=== PATIENT | female | born 1970 | race Two or more races ===

== ENCOUNTER → 2023-01-30 | Outpatient (CLI) | payer OTHER | END | disposition home or self-care (01) | LOC: Rad HDHVI 13:10 | PROVIDERS: ATTEND Internal Medicine Cardiovascular Disease | DX: R07.89 Other chest pain (principal) | CPT/HCPCS: 93306 ==

== ENCOUNTER → 2023-02-24 | Outpatient (CLI) | payer OTHER ==
[~2023-02-24] VITALS: Ht 160 cm; Wt 68.0 kg
== END | disposition home or self-care (01) ==
LOC: Rad HDHVI 14:00
PROVIDERS: ATTEND Internal Medicine Cardiovascular Disease
DX: I10 Essential (primary) hypertension (principal); I20.9 Angina pectoris, unspecified; R06.02 Shortness of breath; E78.00 Pure hypercholesterolemia, unspecified; R42 Dizziness and giddiness; R07.9 Chest pain, unspecified; Z79.899 Other long term (current) drug therapy
CPT/HCPCS: 78452; 93017; 96374; A9500

== ENCOUNTER → 2023-08-17 | Outpatient (CLI) | payer OTHER ==
[2023-08-17 11:43] LABS: Basophils # (auto) 0 10 ^3/uL (0-0.2); Basophils % (auto) 0.7 % (0.0-2.0); Eosinophils # (auto) 0 10 ^3/uL (0-0.8); Eosinophils % (auto) 0.8 % (0.0-7.0); Hematocrit 41.2 % (36.0-46.0); Hemoglobin 14.1 g/dL (12.2-16.2); Lymphocytes # (auto) 1.7 10 ^3/uL (0.4-5.4); Lymphocytes % (auto) 43.9 % (10.0-50.0); Mean Corpuscular Hemoglobin 29.9 pg (28.0-32.0); Mean Corpuscular Hgb Conc. 34.2 g/dL (32.0-36.0); Mean Corpuscular Volume 87.6 fL (80.0-100.0); Monocytes # (auto) 0.3 10 ^3/uL (0-1.3); Monocytes % (auto) 7.3 % (0.0-12.0); Neutrophils # (auto) 1.8 10 ^3/uL (1.6-8.6); Neutrophils % (auto) 47.3 % (37.0-80.0); Nucleated Red Blood Cells % 0.2 %; Red Blood Cells 4.71 10^6/uL (4.0-5.20); Red Cell Distribution Width 12.7 % (11.8-14.3); White Blood Cell 3.9 10^3/uL (4.4-10.8)
[2023-08-17 12:08] LABS: Follicle Stimulating Hormone 12.09 IU/L (SEE BELOW)
== END | disposition home or self-care (01) ==
LOC: LAB 10:56
PROVIDERS: ATTEND Obstetrics & Gynecology
DX: Z13.220 Encounter for screening for lipoid disorders (principal); N95.1 Menopausal and female climacteric states; E07.89 Other specified disorders of thyroid; E34.9 Endocrine disorder, unspecified; E53.9 Vitamin B deficiency, unspecified; E55.9 Vitamin D deficiency, unspecified
CPT/HCPCS: 36415; 82670; 83001; 84144; 84403; 85025

== ENCOUNTER → 2024-01-04 | Outpatient (CLI) | payer OTHER ==
[~2024-01-04] MED LIST: IOHEXOL 350 MG/ML 100ML IJ ONE
[2024-01-04 10:20] VITALS: BP 133/82; PULSE 53; RESP 18; O2SAT 98
[2024-01-04 10:40] VITALS: BP 135/83; PULSE 59; RESP 18; O2SAT 98
== END | disposition home or self-care (01) ==
LOC: Rad HDHVI 10:07
PROVIDERS: ATTEND Internal Medicine Cardiovascular Disease
DX: R07.89 Other chest pain (principal); R00.2 Palpitations
CPT/HCPCS: 71275; G0463; Q9967

== ENCOUNTER → 2024-06-14 | Outpatient (CLI) | payer OTHER | END | disposition home or self-care (01) | LOC: Rad HDHVI 16:08 | PROVIDERS: ATTEND Internal Medicine Cardiovascular Disease | DX: R00.2 Palpitations (principal); R06.02 Shortness of breath | CPT/HCPCS: 93306 ==

== ENCOUNTER → 2024-06-15 | Outpatient (CLI) | payer OTHER ==
[~2024-06-15] VITALS: Ht 160 cm; Wt 68.0 kg
== END | disposition home or self-care (01) ==
LOC: Rad HDHVI 14:00
PROVIDERS: ATTEND Internal Medicine Cardiovascular Disease
DX: I10 Essential (primary) hypertension (principal); I20.9 Angina pectoris, unspecified; R42 Dizziness and giddiness; R00.1 Bradycardia, unspecified; R00.2 Palpitations; R06.00 Dyspnea, unspecified; E78.00 Pure hypercholesterolemia, unspecified; Z82.49 Family history of ischemic heart disease and other diseases of the circulatory system
CPT/HCPCS: 78452; 93017; 96374; A9500

== ENCOUNTER → 2024-11-15 | Outpatient (CLI) | payer OTHER ==
[2024-11-15 09:34] LABS: Urine Bacteria None Seen /hpf (None Seen)
[2024-11-15 10:00] LABS: Basophils # (auto) 0 10 ^3/uL (0-0.2); Basophils % (auto) 0.8 % (0.0-2.0); Eosinophils # (auto) 0 10 ^3/uL (0-0.8); Hematocrit 39.4 % (36.0-46.0); Hemoglobin 13.5 g/dL (12.2-16.2); Lymphocytes # (auto) 1.7 10 ^3/uL (0.4-5.4); Lymphocytes % (auto) 38.9 % (10.0-50.0); Mean Corpuscular Hgb Conc. 34.3 g/dL (32.0-36.0); Mean Corpuscular Volume 87.4 fL (80.0-100.0); Monocytes # (auto) 0.3 10 ^3/uL (0-1.3); Neutrophils # (auto) 2.3 10 ^3/uL (1.6-8.6); Neutrophils % (auto) 52.3 % (37.0-80.0); Nucleated Red Blood Cells % 0.1 %; Platelet Count (auto) 278 10^3/uL (140-450); Red Blood Cells 4.51 10^6/uL (4.0-5.20); Red Cell Distribution Width 13.3 % (11.8-14.3); White Blood Cell 4.4 10^3/uL (4.4-10.8)
[2024-11-15 10:03] LABS: Urine Blood Negative /uL (Negative); Urine Clarity Clear (Clear); Urine Color Colorless (Yellow); Urine Protein, UAD Negative (Negative); Urine Specific Gravity 1.004 (1.001-1.035); Urine Squamous Epithelial Cell FEW /hpf (<5); Urine Urobilinogen Normal (Negative); Urine WBC 2 /HPF (0-5); Urine pH 6.5 (5.0-9.0)
[2024-11-15 10:23] LABS: Anion Gap 7 (5-15); Aspartate Aminotransferase 23 U/L (13-40); BUN/Creatinine Ratio 12.7 (10.0-20.0); Bilirubin, Total 0.8 mg/dL (0.2-1.0); Blood Urea Nitrogen 10 mg/dL (9-23); Carbon Dioxide 28 mmol/L (20-31); Cholesterol 186 mg/dL (< 200); Glucose 93 mg/dL (74-106); Magnesium 2.2 mg/dL (1.6-2.6); Sodium 143 mmol/L (136-145); Total Protein 7.6 g/dL (5.7-8.2); Triglycerides 122 mg/dL (< 150)
[2024-11-15 10:38] LABS: Alanine Aminotransferase 41 U/L (7-40); Albumin 4.9 g/dL (3.2-4.8); Chloride 108 mmol/L (98-107); HDL Cholesterol 63 mg/dL (40-59); LDL Cholesterol 110 mg/dL (< 100)
[2024-11-15 10:43] LABS: Ferritin 106.5 ng/mL (10-291); Free T4 (Free Thyroxine) 1.18 ng/dL (0.89-1.76)
[2024-11-15 10:44] LABS: Follicle Stimulating Hormone 46.03 IU/L (SEE BELOW); Leuteinizing Hormone 22.4 IU/L
[2024-11-15 10:56] LABS: % Iron Saturation 31.9 % (15-50)
[2024-11-15 11:04] LABS: Folate (Folic Acid) 28.23 ng/mL (>5.38)
[2024-11-15 11:11] LABS: Alkaline Phosphatase 79 U/L (46-116)
== END | disposition home or self-care (01) ==
LOC: LAB 09:18
PROVIDERS: ATTEND Family Medicine
DX: E78.5 Hyperlipidemia, unspecified (principal); R06.02 Shortness of breath; Z78.0 Asymptomatic menopausal state
CPT/HCPCS: 36415; 80053; 80061; 81001; 82306; 82607; 82670; 82728; 82746; 83001; 83002; 83036; 83540; 83550; 83735; 84403; 84439; 84443; 85025

== ENCOUNTER → 2025-03-28 | Day surgery (SDC) | payer OTHER ==
[2025-03-24 10:32] LABS: Hematocrit 41.0 % (36.0-46.0); Hemoglobin 13.9 g/dL (12.2-16.2); Mean Corpuscular Hemoglobin 29.5 pg (28.0-32.0); Mean Corpuscular Volume 86.9 fL (80.0-100.0); Nucleated Red Blood Cells % 0.1 %
[2025-03-24 10:41] LABS: INR 0.95 (0.9-1.15); Partial Thromboplastin Time 27.0 SEC (24.5-34.5); Prothrombin Time 10.1 sec (9.3-11.8)
[2025-03-24 10:42] LABS: Alanine Aminotransferase 30 U/L (7-40); Albumin 4.6 g/dL (3.2-4.8); Alkaline Phosphatase 87 U/L (46-116); Anion Gap 5 (5-15); BUN/Creatinine Ratio 12.5 (10.0-20.0); Bilirubin, Total 0.6 mg/dL (0.2-1.0); Blood Urea Nitrogen 10 mg/dL (9-23); Calcium 9.6 mg/dL (8.7-10.4); Carbon Dioxide 30 mmol/L (20-31); Chloride 107 mmol/L (98-107); Glucose 100 mg/dL (74-106); Potassium 4.1 mmol/L (3.5-5.1); Sodium 142 mmol/L (136-145); Total Protein 7.3 g/dL (5.7-8.2)
[~2025-03-28] VITALS: Ht 160 cm; Wt 68.0 kg
[~2025-03-28] MED LIST changes: +GARL200T PO; -IOHEXOL 350 MG/ML 100ML IJ ONE; +SODIUM CHLORIDE LOCK 10 ML ONE
[2025-03-28 11:46] VITALS: TEMP 97.5
[2025-03-28 12:16] VITALS: PULSE 66; RESP 19; O2SAT 100
[2025-03-28] MEDS: LIDOCAINE VISCOUS 2% 15ML UD ONE (12:19)
[2025-03-28] MEDS: MIDAZOLAM HCL 5 MG/ML-1ML VIAL ONE (12:20)
[2025-03-28] MEDS: fentaNYL CITRATE 100 MCG/2 ML VL ONE (12:20)
[2025-03-28] MEDS: diphenhdrAMINE HCL 50 MG/1 ML VL ONE (12:20)
[2025-03-28 12:33] VITALS: O2SAT 98
--- NOTE | 2025-03-28 12:40 | DVHOP2 ---
Operative Report DATE OF OPERATION: 03/28/25 PROCEDURE: Upper Endoscopy with biopsy PREOPERATIVE INDICATION: The patient is a 54 -year-old female undergoing endoscopy for epigastric and right upper quadrant pain and history of H.pylori positive POSTOPERATIVE DIAGNOSES: 1. Mild antral gastritis and minimal duodenitis of the duodenal bulb 2. 5 mm extension of columnar epithelium into the distal esophagus but no significant hiatal hernia or esophagitis 3. Otherwise normal examination up to the 2nd and 3rd part of the duodenum PROCEDURE PERFORMED BY: Nicki Carney GI NURSE: Will SCOPE: Olympus videoendoscope. ASA CLASS: 2. PREOPERATIVE MEDICATIONS: Versed 3 mg, Fentanyl 75 mcg, Benadryl 50 mg I administered moderate sedation throughout this _8_ minutes procedure. An independent trained observer pushed medications at my direction, and monitored the patient's level of consciousness and physiological status throughout. PROCEDURE IN DETAIL: After obtaining an informed consent, the patient was placed on left lateral decubitus position. The patient was then sedated with the above medications. A bite block was placed between her teeth. The endoscope was then passed through the oropharynx, into the esophagus, and through the stomach and pylorus up to the second and third part of the duodenum. The endoscope was then withdrawn. The 2nd and 3rd part of the duodenum were normal in the duodenal bulb showed minimal duodenitis. Duodenal biopsies were obtained The pre-pyloric area antrum and body showed minimal gastritis. Gastric biopsies were obtained On retroflexion the fundus cardia and angularis were normal. The endoscope was then withdrawn into the distal esophagus Patient had slightly irregular squamocolumnar junction with 5 mm extension of columnar epithelium into the distal esophagus from which biopsies were obtained There was no significant hiatal hernia and no significant esophagitis. The remaining distal and proximal esophagus and oropharynx were unremarkable The patient tolerated the procedure well without difficulty. COMPLICATIONS : None SPECIMENS: Duodenal biopsies Gastric biopsies GE junction biopsies DISPOSITION: Stable D/C to home PLAN: 1. Await for biopsy result 2. Will place pt on Protonix 20 mg p.o. daily 3. Resume GI soft diet advance as tolerated 4. Outpatient follow up with me in 4-6 weeks to review results and discuss further management NICKI CARNEY MD Mar 28, 2025 12:40
[2025-03-28 13:10] VITALS: BP 135/76; PULSE 50; RESP 14; O2SAT 100
== END | disposition home or self-care (01) ==
LOC: GI 11:24
PROVIDERS: ATTEND Internal Medicine Gastroenterology
DX: R10.13 Epigastric pain (principal); K29.50 Unspecified chronic gastritis without bleeding; K21.00 Gastro-esophageal reflux disease with esophagitis, without bleeding; K29.80 Duodenitis without bleeding; G47.30 Sleep apnea, unspecified
CPT/HCPCS: 36415; 43239; 80053; 81025; 85025; 85610; 85730; 88305; 88342; J1200; J2250; J3010; J7030

== ENCOUNTER → 2025-06-02 | Outpatient (CLI) | payer OTHER ==
[~2025-06-02] MED LIST changes: -SODIUM CHLORIDE LOCK 10 ML ONE
[2025-06-02 11:52] LABS: Hematocrit 40.6 % (36.0-46.0); Hemoglobin 13.8 g/dL (12.2-16.2); Mean Corpuscular Hemoglobin 29.1 pg (28.0-32.0); Mean Corpuscular Volume 85.6 fL (80.0-100.0); Nucleated Red Blood Cells % 0.3 %
[2025-06-02 11:59] LABS: Urine Protein, UAD Negative (Negative)
[2025-06-02 12:32] LABS: Alanine Aminotransferase 27 U/L (7-40); Albumin 4.6 g/dL (3.2-4.8); Alkaline Phosphatase 79 U/L (46-116); Anion Gap 9 (5-15); BUN/Creatinine Ratio 14.3 (10.0-20.0); Bilirubin, Total 1.0 mg/dL (0.2-1.0); Blood Urea Nitrogen 13 mg/dL (9-23); Calcium 9.7 mg/dL (8.7-10.4); Carbon Dioxide 26 mmol/L (20-31); Chloride 108 mmol/L (98-107); Glucose 96 mg/dL (74-106); Potassium 3.9 mmol/L (3.5-5.1); Sodium 143 mmol/L (136-145); Total Protein 7.5 g/dL (5.7-8.2)
[2025-06-02 12:52] LABS: Triglycerides 96 mg/dL (< 150)
[2025-06-02 12:54] LABS: Bilirubin, Direct 0.2 mg/dL (<0.3); Cholesterol 223 mg/dL (< 200); HDL Cholesterol 63 mg/dL (40-59)
== END | disposition home or self-care (01) ==
LOC: LAB 11:12
PROVIDERS: ATTEND Internal Medicine Cardiovascular Disease
DX: I10 Essential (primary) hypertension (principal); E11.9 Type 2 diabetes mellitus without complications; E55.9 Vitamin D deficiency, unspecified; D64.9 Anemia, unspecified; T78.1XXA Other adverse food reactions, not elsewhere classified, initial encounter; X58.XXXA Exposure to other specified factors, initial encounter
CPT/HCPCS: 36415; 80048; 80061; 80076; 81003; 83036; 84443; 85025; 86003

== ENCOUNTER 2025-07-05 03:48 | Inpatient (IN) | payer OTHER ==
[~2025-07-05] VITALS: Ht 160 cm; Wt 68.4 kg
[2025-07-05 04:34] LABS: Chloride 106 mmol/L (98-107); Potassium 4.0 mmol/L (3.5-5.1); Sodium 143 mmol/L (136-145)
[2025-07-05 04:35] LABS: Anion Gap 9 (5-15); Calcium 9.8 mg/dL (8.7-10.4); Carbon Dioxide 28 mmol/L (20-31)
[2025-07-05 04:36] LABS: Hematocrit 38.3 % (36.0-46.0); Hemoglobin 13.0 g/dL (12.2-16.2); Mean Corpuscular Hemoglobin 29.2 pg (28.0-32.0); Mean Corpuscular Volume 86.4 fL (80.0-100.0); Nucleated Red Blood Cells % 0.0 %
--- NOTE | 2025-07-05 04:36 | ECG ---
[facility] Test Date: 2025-07-05 Test Time: 04:33:55 Pat Name: JR JACOBS Department: ED Room: 0287T Gender: F Processing Supervisor: REKHA : 1970 Requested By: LUCIE GALDAMEZ Order Number: [id number] Reading MD: Fidencio Velez Measurements Intervals [place] Rate: 50 P: 71 MT: 181 QRS: 66 QRSD: 83 T: 57 QT: 443 QTc: 404 Interpretive Statements Sinus rhythm Anteroseptal infarct, age indeterminate Electronically Signed On 07-10-2025 14:15:51 PDT by Fidencio Velez Please click the below link to view image of tracing.
[2025-07-05 04:40] LABS: BUN/Creatinine Ratio 11.0 (10.0-20.0); Blood Urea Nitrogen 9 mg/dL (9-23)
[2025-07-05 04:44] LABS: Glucose 111 mg/dL (74-106)
--- NOTE | 2025-07-05 05:42 | DVH ---
CHEST RADIOGRAPH Indication: cp Technique: Single frontal view of the chest was obtained Comparison: CT CT ANGIO CHEST CONTRAST on DOS: 01/04/24 FINDINGS: Lines and Tubes: None Lungs: No focal consolidation. Pleura: No effusion. No pneumothorax. Cardiomediastinal contours: Unremarkable Bones: No acute osseous abnormality. IMPRESSION: 1. No acute cardiopulmonary disease.
--- NOTE | 2025-07-05 06:40 | ECG ---
[facility] Test Date: 2025-07-05 Test Time: 03:54:19 Pat Name: JR JACOBS Department: ED Room: 0287T Gender: F Therapy Administrative Assistant: oswald : 1970 Requested By: LUCIE GALDAMEZ Order Number: [id number] Reading MD: Fidencio Velez Measurements Intervals [place] Rate: 52 P: 70 SD: 181 QRS: 64 QRSD: 78 T: 58 QT: 440 QTc: 410 Interpretive Statements Sinus rhythm Probable anteroseptal infarct, old Electronically Signed On 07-10-2025 14:15:01 PDT by Fidencio Velez Please click the below link to view image of tracing.
--- NOTE | 2025-07-05 06:44 | ED.PDOC ---
HPI Comments This is a 55 year old female presenting to the ED with chief complaint of chest pain. Patient reports that she has been experiencing substernal chest pressure with associated cough, dizziness, nausea, and occasional heart burn since last night around 5pm. 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 Patient states that she has history of a perforated left ear drum at this time. Patient denies any vomiting, SOB, abdominal pain, headache, syncope, or fever. Chief Complaint: Chest Pain Time Seen by MD: 06:42 Reviewed Notes: Nurses Notes, Medications, Allergies Allergies: Coded Allergies: NO KNOWN ALLERGIES (Unverified , 03/24/25) Home Meds Active Scripts Alum & Mag Hydrox-Simethicone (Maalox Plus) 30 Ml Ss, 30 ML PO Q6HP PRN for 30 Days, #1200 ML Prov:VANIA HILLIARD MD 07/07/25 Reported Medications Pantoprazole Sodium Sesquihydr (Protonix) 40 Mg Tab, 40 MG PO DAILY, #30 TAB 07/05/25 Allium Sativan Extract (GARLIC) 200 Mg Tab, PO, TAB 03/24/25 Information Source: Patient, Spouse Mode of Arrival: Ambulatory Severity: Moderate Timing: Hours Duration: Since onset Prehospital treatment: None Location: Substernal Radiation: No Radiation Quality: Pressure, Burning Onset: At Rest PE Risk Factors: None History of: None Past Medical History PAST MEDICAL HISTORY: Denies Surgical History: Denies all surgeries SLEEP SCIENTIST History: No Pertinent SLEEP SCIENTIST History Family History Family History: Reviewed,noncontributory to illness Social History Smoker: Non-Smoker Alcohol: Denies ETOH Use Drugs: Denies Drug Use Lives In: Home Constitutional: denies: chills, diaphoresis, fatigue, fever, malaise, sweats, weakness, others EENTM: denies: blurred vision, double vision, ear bleeding, ear discharge, ear drainage, ear pain, ear ringing, eye pain, eye redness, hearing loss, mouth pain, mouth swelling, nasal discharge, nose bleeding, nose congestion, nose pain, photophobia, tearing, throat pain, throat swelling, voice changes, others Respiratory: reports: cough; denies: hemoptysis, orthopnea, SOB at rest, shortness of breath, SOB with excertion, stridor, wheezing, others Cardiovascular: reports: chest pain; denies: dizzy spells, diaphoresis, Dyspnea on exertion, edema, irregular heart beat, left arm pain, lightheadedness, palpitations, PND, syncope, others Gastrointestinal: reports: nausea; denies: abdomen distended, abdominal pain, blood streaked bowels, constipated, diarrhea, dysphagia, difficulty swallowing, hematemesis, melena, poor appetite, poor fluid intake, rectal bleeding, rectal pain, vomiting, others Genitourinary: denies: abnormal vagina bleeding, burning, dyspareunia, dysuria, flank pain, frequency, hematuria, incontinence, pain, , vagina discharge, urgency, others Neurological: reports: dizziness; denies: fainting, headache, left sided numbness, left sided weakness, numbness, paresthesia, pre-existing deficit, right sided numbness, right sided weakness, seizure, speech problems, tingling, tremors, weakness, others Musculoskeletal: denies: back pain, gout, joint pain, joint swelling, muscle pain, muscle stiffness, neck pain, others Integumetry: denies: bruises, change in color, change in hair/nails, dryness, laceration, lesions, lumps, rash, wounds, others Allergic/Immunocompromised: denies: Difficulty Healing, Frequent Infections, Hives, Itching, others Hematologic/Lymphatic: denies: anemia, blood clots, easy bleeding, easy bruising, swollen glands, others Endocrine: denies: excessive hunger, excessive sweating, excessive thirst, excessive urination, flushing, intolerance to cold, intolerance to heat, unexplained weight gain, unexplained weight loss, others Psychiatric: denies: anxiety, bipolar disorder, depression, hopeless, panic disorder, schizophrenia, sleepless, suicidal, others All Other Systems: Reviewed and Negative Physical Exam General Appearance: No Apparent Distress, Normal HEENT: Normal ENT Inspection, Pharynx Normal, TMs Normal Neck: Full Range of Motion, Non-Tender, Normal, Normal Inspection Respiratory: Chest Non-Tender, Lungs Clear, No Accessory Muscle Use, No Respiratory Distress, Normal Breath Sounds Cardiovascular: No Edema, No JVD, No Murmur, No Gallop, Normal Peripheral Pulses, Regular Rate/Rhythm Breast Exam: Deferred Gastrointestinal: No Organomegaly, Non Tender, No Pulsatile Mass, Normal Bowel Sounds, Soft Genitalia: Deferred Pelvic: Deferred Rectal: Deferred Extremities: No calf tenderness, Normal capillary refill, Normal inspection, Normal range of motion, Non-tender, No pedal edema Musculoskeletal : Apperance: Normal Neurologic: Alert, double back operator II-XII nml as Tested, No Motor Deficits, Normal Affect, Normal Mood, No Sensory Deficits Cerebellar Function: Normal Reflexes: Normal Skin: Dry, Normal Color, Warm Lymphatic: No Adenopathy Was a procedure done? Was a procedure done?: No CP Differential Dx Differential Diagnosis: MAT, [place] Differential Diagnosis: HTN Essential, HTN Accelerated Differential Diagnosis: Gastritis, Myocardial Infarction, Pericarditis X-Ray, Labs, Meds, VS Vital Signs Date Time Temp Pulse Resp B/P (MAP) Pulse Ox O2 Delivery O2 Flow Rate FiO2 07/05/25 09:55 54 20 139/61 07/05/25 09:50 54 20 98 Room Air* 0 21 07/05/25 09:31 54 20 98 Room Air 07/05/25 09:31 97.7 54 20 139/61 (87) 98 97.7 07/05/25 06:43 54 07/05/25 04:33 50 07/05/25 03:54 52 07/05/25 03:51 97.8 51 18 164/102 99 97.8 Lab Test 07/05/25 06:51 07/05/25 05:03 07/05/25 03:56 Range/Units Troponin I High Sensitivity 24 23 20 </=34 ng/L White Blood Count 5.0 4.4-10.8 10^3/uL Red Blood Count 4.43 4.0-5.20 10^6/uL Hemoglobin 13.0 12.2-16.2 g/dL Hematocrit 38.3 36.0-46.0 % Mean Corpuscular Volume 86.4 80.0-100.0 fL Mean Corpuscular Hemoglobin 29.2 28.0-32.0 pg Mean Corpuscular Hemoglobin Concent 33.8 32.0-36.0 g/dL Red Cell Distribution Width 12.9 11.8-14.3 % Platelet Count 296 140-450 10^3/uL Mean Platelet Volume 8.4 6.9-10.8 fL Neutrophils (%) (Auto) 44.5 37.0-80.0 % Lymphocytes (%) (Auto) 46.3 10.0-50.0 % Monocytes (%) (Auto) 7.4 0.0-12.0 % Eosinophils (%) (Auto) 1.2 0.0-7.0 % Basophils (%) (Auto) 0.6 0.0-2.0 % Neutrophils # (Auto) 2.2 1.6-8.6 10 ^3/uL Lymphocytes # (Auto) 2.3 0.4-5.4 10 ^3/uL Monocytes # (Auto) 0.4 0-1.3 10 ^3/uL Eosinophils # (Auto) 0.1 0-0.8 10 ^3/uL Basophils # (Auto) 0 0-0.2 10 ^3/uL Nucleated Red Blood Cells 0.0 % Sodium Level 143 136-145 mmol/L Potassium Level 4.0 3.5-5.1 mmol/L Chloride Level 106 98-107 mmol/L Carbon Dioxide Level 28 20-31 mmol/L Anion Gap 9 5-15 Blood Urea Nitrogen 9 9-23 mg/dL Creatinine 0.82 0.550-1.02 mg/dL Glomerular Filtration Rate Calc 85 >90 mL/min BUN/Creatinine Ratio 11.0 10.0-20.0 Serum Glucose 111 H 74-106 mg/dL Hemoglobin A1c 5.4 <5.7 % A1C Calcium Level 9.8 8.7-10.4 mg/dL B-Type Natriuretic Peptide 7.47 0-100 pg/mL Triglycerides Level 93 < 150 mg/dL Cholesterol Level 240 H < 200 mg/dL LDL Cholesterol 165 H < 100 mg/dL HDL Cholesterol 66 H 40-59 mg/dL Thyroid Stimulating Hormone (TSH) 4.51 0.55-4.78 uIU/mL [address] [address] Ph: [phone] DIAGNOSTIC IMAGING Diagnostic Imaging Report : [id number] Signed PATIENT: JR JACOBS ACCT: [id number] UNIT: [id number] : 1970 LOC: ER ROOM / BED: / AGE / SEX: 55 / F ADM STATUS: REG ER SERVICE 0410 ORDERING PHYSICIAN: LUCIE GALDAMEZ MD PROCEDURE(s): CXR1 - CHEST XRAY 1 VIEW REASON: cp ORDER NUMBER(s): [id number], ACCESSION NUMBER(s): [id number] CHEST RADIOGRAPH Indication: cp Technique: Single frontal view of the chest was obtained Comparison: CT CT ANGIO CHEST CONTRAST on DOS: 01/04/24 FINDINGS: Lines and Tubes: None Lungs: No focal consolidation. Pleura: No effusion. No pneumothorax. Cardiomediastinal contours: Unremarkable Bones: No acute osseous abnormality. IMPRESSION: 1. No acute cardiopulmonary disease. ATED BY: THU LEON MD DICTATED DATE/TIME: 07/05/25539 SIGNED BY: THU LEON MD SIGNED DATE/TIME: 07/05/25539 CC: Images Reviewed?: Images reviewed and evaluated by me Time of 1ST Reevaluation: 17:42 Reevaluation 1ST: Unchanged Patient Education/Counseling: Diagnosis, Treatment Family Education/Counseling: Diagnosis, Treatment SEPSIS Sepsis Screen Date sepsis recognized/suspect: Jul 05, 2025 Time Sepsis recognized/suspect: 035 Recent Procedure: No On Antibiotic Therapy: No Respiratory Rate >20: No Heart Rate >90: No Temp<36 C (96.8 F) or >38.3 C: No SBP <90 or MAP <65 mmHG: No New Acute Mental Status Change: No Is the patient on CPAP, BIPAP,: No Physician Orders Electrocardigram (07/05/25 03:51) Electrocardigram (07/05/25 04:51) Electrocardigram (07/05/25 06:51) Chest Xray 1 View (07/05/25 04:10) Geospatial Analyst (07/05/25 ) Vital Signs Date Time Temp Pulse Resp B/P (MAP) Pulse Ox O2 Delivery O2 Flow Rate FiO2 07/05/25 09:55 54 20 139/61 07/05/25 09:50 54 20 98 Room Air* 0 21 07/05/25 09:31 54 20 98 Room Air 07/05/25 09:31 97.7 54 20 139/61 (87) 98 97.7 07/05/25 06:43 54 07/05/25 04:33 50 07/05/25 03:54 52 07/05/25 03:51 97.8 51 18 164/102 99 97.8 Laboratory Tests Test 07/05/25 03:56 White Blood Count 5.0 10^3/uL (4.4-10.8) Departure 1 Departure Time of Disposition: 08:00 (Patient presented with chest pain that was concerning for possible STEMI, ACS, PE, Pneumonia, Muscle Strain, COPD, Dissection. Data: 1. I ordered and reviewed the result of at least 3 labs including a CBC, BMP, and Troponin. 2. I independently interpreted the following tests: EKG which shows sinus arrhythmia and Chest X-ray which shows benign chest.Risk:This patient has a high risk of morbidity due to further diagnostic testing or treatment and may suffer from an acute cardiac or respiratory disorder. Workup reveals and patient should be admitted for further workup and possible expert consultation. ) Impression: Primary Impression: Acute chest pain Disposition: ADMITTED INPATIENT Admit to: Tele Condition: Guarded e-Prescriptions Alum & Mag Hydrox-Simethicone (Maalox Plus) 30 Ml Ss 30 ML PO Q6HP PRN for 30 Days, #1200 ML Prov: VANIA HILLIARD MD 07/07/25 Critical Care Note Critical Care Time?: Yes Critical care comment: Acute chest pain Authorized and Performed by: Josias Smith MD Total critical care time: Approximately 38 minutes Due to a high probability of clinically significant, life threatening deterioration, the patient required my highest level of preparedness to intervene emergently and I personally spent this critical care time directly and personally managing the patient. This critical care time included obtaining a history; examining the patient; pulse oximetry; ordering and review of studies; arranging urgent treatment with development of a management plan; evaluation of patient's response to treatment; frequent reassessment; and, discussions with other providers. This critical care time was performed to assess and manage the high probability of imminent, life-threatening deterioration that could result in multi-organ failure. It was exclusive of separately billable procedures and treating other patients and teaching time. Please see my other sections and the rest of the note for further information on patient assessment and treatment. Stability Stability form required: No Heart Score Heart Score: Heart Score Response (Comments) Value History Highly Suspicious 2 EKG Repolarization Disturb 1 Age 45-64 1 Risk Factors 1 or 2 risk factors 1 Troponin >3 x's Normal limit 2 Total 7 I personally scribed for JOSIAS SMITH MD ([email or web address]) on 07/05/25 at 06:44. El ectronically submitted by Mark Salcedo ([email or web address]). I personally scribed for JOSIAS SMITH MD ([email or web address]) on 07/05/25 at 07:14. E lectronically submitted by Mark Salcedo ([email or web address]). JOSIAS SMITH MD Jul 05, 2025 06:44
--- NOTE | 2025-07-05 06:45 | ECG ---
[facility] Test Date: 2025-07-05 Test Time: 06:43:17 Pat Name: JR JACOBS Department: ED Room: 0287T Gender: F Disability Representative: REKHA : 1970 Requested By: LUCIE GALDAMEZ Order Number: [id number] Reading MD: Fidencio Velez Measurements Intervals [place] Rate: 54 P: 74 [place]: 189 QRS: 66 QRSD: 78 T: 57 QT: 431 QTc: 409 Interpretive Statements Sinus rhythm Probable anteroseptal infarct, old Electronically Signed On 07-10-2025 14:17:29 PDT by Fidencio Velez Please click the below link to view image of tracing.
[2025-07-05] MEDS: MAALOX PLUS or MAALOX 30 ML PO ONE (07:07)
[2025-07-05] MEDS: ONDANSETRON ODT 4 MG TAB PO ONE (07:07)
[2025-07-05] MEDS: FAMOTIDINE 20 MG TAB PO ONE (07:08)
[2025-07-05 09:50] VITALS: PULSE 54; RESP 20; O2SAT 98
[2025-07-05] MEDS: ONDANSETRON HCL 4 MG/2 ML VIAL IV ONE (09:53)
[2025-07-05] MEDS: HYDROmorphone HCL 2 MG/ML VL/or syr IV ONE (09:55)
[2025-07-05] MEDS ORDERED: NITROGLYCERIN 0.4 MG SL TAB SL PRN (10:30)
[2025-07-05] MEDS ORDERED: ONDANSETRON HCL 4 MG/2 ML VIAL IV PRN (10:30)
[2025-07-05] MEDS ORDERED: DOCUSATE SOD 100 MG CAP PO PRN (10:30)
[2025-07-05] MEDS ORDERED: ACETAMINOPHEN 325 MG TAB PO PRN (10:30)
[2025-07-05] MEDS ORDERED: MORPHINE SULFATE INJ 2 MG/ml SYRG IV PRN (10:30)
--- NOTE | 2025-07-05 10:44 | DVHHP2 ---
History of Present Illness Reason for Visit: Chest pain History of Present Illness Danyell Garcia is a 55-year-old female with past medical history of sleep apnea, and GERD, who came to the hospital for chest pain. Patient states she has been experiencing intermittent chest pain for the past couple of months. She states it usually goes away with a little time. This time her chest pain started last night about 2330. She describes the pain as a pressure, with associated dizziness, and sweating. When the pain did not subside she came to the hospital. She is following with Dr. Bowen as an outpatient. She was told she was going to have an ECHO and stress test, but is not sure when. Pulmonary: Other (sleep apnea) GI: GERD Past Surgical History: None Smoke: No ALCOHOL: none Drugs: None Lives: with Family Domestic Violence: Neg Review of Systems Constitutional: Yes: Sweats; No: Fever, Chills, Weakness, Malaise, Other Eyes: No: Pain, Vision change, Conjunctivae inflammation, Eyelid inflammation, Other, Redness ENT: No: Ear pain, Ear discharge, Nose pain, Nose discharge, Nose congestion, Mouth pain, Mouth swelling, Throat pain, Throat swelling, Other Respiratory: Shortness of breath; No: Cough, Dry, SOB with excertion, Wheezing, Hemoptysis, Pleuritic Pain, Sputum, Wheezing, Other Cardiovascular: Chest Pain; No: Palpitations, Orthopnea, Paroxysmal Noc. Dyspnea, Edema, Lt Headedness, Other Gastrointestinal: No: Nausea, Vomiting, Abdominal Pain, Diarrhea, Constipation, Melena, Hematochezia, Other Genitourinary: No Dysuria, No Frequency, No Incontinence, No Hematuria, No Retention, No Other Musculoskeletal: No: other, neck pain, shoulder pain, arm pain, back pain, hand pain, leg pain, foot pain Skin: No: Rash, Lesions, Jaundice, Bruising, Other Neurological: No: Weakness, Numbness, Incoordination, Change in speech, Confusion, Seizures, Other (dizzy) Allergies: Coded Allergies: NO KNOWN ALLERGIES (Unverified , 03/24/25) Medications Current Medications Medications Dose Ordered Sig/Niles Route Start Time Stop Time Status Last Admin Dose Admin Acetaminophen/ Hydrocodone Bitart 1 tab Q4HP PRN PO 07/05/25 10:30 UNV Ondansetron HCl 4 mg Q4HP PRN IV 07/05/25 10:30 Docusate Sodium 100 mg BIDPRN PRN PO 07/05/25 10:30 Acetaminophen 650 mg Q6HP PRN PO 07/05/25 10:30 Nitroglycerin 0.4 mg Q5MINP PRN SL 07/05/25 10:30 Morphine Sulfate 2 mg Q30M PRN IV 07/05/25 10:30 Exam Vital Signs Vital Signs Date Time Temp Pulse Resp B/P (MAP) Pulse Ox O2 Delivery O2 Flow Rate FiO2 07/05/25 09:55 54 20 139/61 07/05/25 09:50 98 Room Air* 0 21 07/05/25 09:31 97.7 97.7 General Appearance: Alert, Oriented X3 HEENT: Atraumatic, PERRLA Respiratory: Clear to auscultation, Normal air movement Cardiovascular: Normal S1, Normal S2, Other (SB) Abdominal: Normal bowel sounds, Soft, No tenderness Extremities: No clubbing, No cyanosis, No edema, Normal pulses, No tenderness/swelling Skin: No rashes, No breakdown, No significant lesion Neuro: Normal gait, Normal speech, Strength at 5/5 X4 ext, Normal tone Psych/Mental Status: Mental status NL, Mood NL Labs/Xrays Labs Test 07/05/25 06:51 07/05/25 03:56 Range/Units Troponin I High Sensitivity 24 </=34 ng/L White Blood Count 5.0 4.4-10.8 10^3/uL Red Blood Count 4.43 4.0-5.20 10^6/uL Hemoglobin 13.0 12.2-16.2 g/dL Hematocrit 38.3 36.0-46.0 % Mean Corpuscular Volume 86.4 80.0-100.0 fL Mean Corpuscular Hemoglobin 29.2 28.0-32.0 pg Mean Corpuscular Hemoglobin Concent 33.8 32.0-36.0 g/dL Red Cell Distribution Width 12.9 11.8-14.3 % Platelet Count 296 140-450 10^3/uL Mean Platelet Volume 8.4 6.9-10.8 fL Neutrophils (%) (Auto) 44.5 37.0-80.0 % Lymphocytes (%) (Auto) 46.3 10.0-50.0 % Monocytes (%) (Auto) 7.4 0.0-12.0 % Eosinophils (%) (Auto) 1.2 0.0-7.0 % Basophils (%) (Auto) 0.6 0.0-2.0 % Neutrophils # (Auto) 2.2 1.6-8.6 10 ^3/uL Lymphocytes # (Auto) 2.3 0.4-5.4 10 ^3/uL Monocytes # (Auto) 0.4 0-1.3 10 ^3/uL Eosinophils # (Auto) 0.1 0-0.8 10 ^3/uL Basophils # (Auto) 0 0-0.2 10 ^3/uL Nucleated Red Blood Cells 0.0 % Sodium Level 143 136-145 mmol/L Potassium Level 4.0 3.5-5.1 mmol/L Chloride Level 106 98-107 mmol/L Carbon Dioxide Level 28 20-31 mmol/L Anion Gap 9 5-15 Blood Urea Nitrogen 9 9-23 mg/dL Creatinine 0.82 0.550-1.02 mg/dL Glomerular Filtration Rate Calc 85 >90 mL/min BUN/Creatinine Ratio 11.0 10.0-20.0 Serum Glucose 111 H 74-106 mg/dL Calcium Level 9.8 8.7-10.4 mg/dL B-Type Natriuretic Peptide 7.47 0-100 pg/mL CHEST RADIOGRAPH FINDINGS: Lines and Tubes: None Lungs: No focal consolidation. Pleura: No effusion. No pneumothorax. Cardiomediastinal contours: Unremarkable Bones: No acute osseous abnormality. IMPRESSION: 1. No acute cardiopulmonary disease. 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 ) Admit (07/05/25 10:28) Code Status (07/05/25 10:28) 2 Gm Sodium Diet (07/05/25 Lunch) Hydrocodone-Acet 5/325mg Tab ([place] 5/32 (07/05/25 10:30) Ondansetron Hcl (Zofran) (07/05/25 10:30) Docusate Sodium Capsule (Colace Capsule) (07/05/25 10:30) Complete Blood Count (07/06/25 04:00) Comprehensive Metabolic Panel (07/06/25 04:00) Echo 2d Mode Cardiac Dop (07/05/25 10:28) Condition: Serious (07/05/25 10:28) Acetaminophen Tablet (Tylenol Tablet) (07/05/25 10:30) Nitroglycerin Sublingual (Ntrostat Subli (07/05/25 10:30) Morphine Sulfate Injection (07/05/25 10:30) Stat Ekg For Chest Pain (07/05/25 10:) Notify Md Of Changes From Base (07/05/25 10:) 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 Andrés Gillis (07/05/25 10:28) Vital Signs Date Time Temp Pulse Resp B/P (MAP) Pulse Ox O2 Delivery O2 Flow Rate FiO2 07/05/25 09:55 54 20 139/61 07/05/25 09:50 54 20 98 Room Air* 0 21 07/05/25 09:31 54 20 98 Room Air 07/05/25 09:31 97.7 54 20 139/61 (87) 98 97.7 07/05/25 06:43 54 07/05/25 04:33 50 07/05/25 03:54 52 07/05/25 03:51 97.8 51 18 164/102 99 97.8 Laboratory Tests Test 07/05/25 03:56 White Blood Count 5.0 10^3/uL (4.4-10.8) Medications Medications Dose Ordered Sig/Niles Route Start Time Stop Time Status Last Admin Dose Admin Al Hydrox/Mg Hydrox/Simethicone 15 ml ONCE ONCE PO 07/05/25 07:00 07/05/25 07:01 DC 07/05/25 07:07 15 ML Famotidine 20 mg ONCE ONCE PO 07/05/25 06:45 07/05/25 06:48 DC 07/05/25 07:08 20 MG Hydromorphone HCl 1 mg ONCE ONCE IV 07/05/25 09:45 07/05/25 09:46 DC 07/05/25 09:55 1 MG Ondansetron HCl 4 mg ONCE ONCE IV 07/05/25 09:45 07/05/25 09:46 DC 07/05/25 09:53 4 MG Ondansetron HCl 4 mg ONCE ONCE PO 07/05/25 06:45 07/05/25 06:48 DC 07/05/25 07:07 4 MG Assessment/Plan Assessment/Plan Assessment: Symptomatic sinus bradycardia, Intractable chest pain, GERD, Sleep apnea, Plan: Admit to Tele, Cardiology consult, ECHO, TSH, A1c, Lipid panel, Chest pain protocol, Start ASA, Home medications reconciled, Plan discussed with: Patient, Spouse My Orders Orders - SAMANTHA HAWKINS Procedure Category Date Status Time Admit ADMIT 07/05/25 Transmitted 10:28 Code Status CODE 07/05/25 Transmitted 10:28 2 Gm Sodium Diet DIET 07/05/25 Transmitted Lunch Hydrocodone-Acet PHA 07/05/25 Logged 5/325mg Tab ([place] 10:30 Ondansetron Hcl PHA 07/05/25 In Process (Zofran) 10:30 Docusate Sodium PHA 07/05/25 In Process Capsule (Colace 10:30 Complete Blood Count LAB 07/06/25 Verified 04:00 Comprehensive LAB 07/06/25 Verified Metabolic Panel 04:00 Echo 2d Mode Cardiac US 07/05/25 Logged DOP 10:28 Condition: Serious MUMTAZ 07/05/25 In Process 10:28 Acetaminophen Tablet PHA 07/05/25 In Process (Tylenol Tablet) 10:30 Nitroglycerin PHA 07/05/25 In Process Sublingual (Ntrostat 10:30 Morphine Sulfate PHA 07/05/25 Logged Injection 10:30 Stat Ekg For Chest MUMTAZ 07/05/25 In Process Pain 10:28 Notify Of Changes MUM[facility] 07/05/25 In Process From Base 10:28 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 Bowen CONS 07/05/25 Transmitted [place] 10:28 Date of Service: Jul 05, 2025 Billing Provider: SAMANTHA HAWKINS Common Visit Codes: [id number] INP/OBS CARE (MOD) SAMANTHA HAWKINS Jul 05, 2025 10:44
--- NOTE | 2025-07-05 13:32 | DVHPN2 ---
Progress Note - Dictate Date Seen: Jul 05, 2025 Medical Necessity Reason Pt with a Central, PICC or Fol: No Subjective PT WITH RECURRENT CHEST PAIN WOKE PT UP FROM SLEEP TROPONIN NEGATIVE ECG NEGATIVE PMH; GERD SLEEP APNEA vital signs Vital Sign Date Time Temp Pulse Resp B/P (MAP) Pulse Ox O2 Delivery O2 Flow Rate FiO2 07/05/25 13:00 72 20 122/74 07/05/25 09:50 98 Room Air* 0 21 07/05/25 09:31 97.7 97.7 medications Current Medications Medications Dose Ordered Sig/Niles Route Start Time Stop Time Status Last Admin Dose Admin Acetaminophen/ Hydrocodone Bitart 1 tab Q4HP PRN PO 07/05/25 10:30 Ondansetron HCl 4 mg Q4HP PRN IV 07/05/25 10:30 Docusate Sodium 100 mg BIDPRN PRN PO 07/05/25 10:30 Acetaminophen 650 mg Q6HP PRN PO 07/05/25 10:30 Nitroglycerin 0.4 mg Q5MINP PRN SL 07/05/25 10:30 Morphine Sulfate 2 mg Q30M PRN IV 07/05/25 10:30 laboratory and microbiology Laboratory Tests 07/05/25 03:56 Test 07/05/25 03:56 Range/Units Serum Glucose 111 H 74-106 mg/dL Problem List RECURRENT CHEST PAIN WOKE PT UP FROM SLEEP TROPONIN NEGATIVE ECG NEGATIVE PMH; GERD SLEEP APNEA Assessment/Plan LHC IN AM Plan discussed with: Patient ADAN RIVERA MD Jul 05, 2025 13:32
[2025-07-05] MEDS ORDERED: PANT40TA2 PO (17:55)
[2025-07-05 18:04] VITALS: BP 125/68; PULSE 61; RESP 18; TEMP 98.2; O2SAT 98
[2025-07-05 18:25] LABS: Triglycerides 93 mg/dL (< 150)
[2025-07-05 18:34] LABS: Cholesterol 240 mg/dL (< 200); HDL Cholesterol 66 mg/dL (40-59)
[2025-07-05] MEDS: PANTOPRAZOLE 40 MG TAB PO SCH (18:42)
[2025-07-05 19:33] LABS: INR 1.02 (0.9-1.15); Partial Thromboplastin Time 25.4 SEC (24.5-34.5); Prothrombin Time 10.8 sec (9.3-11.8)
[2025-07-05] MEDS: HYDROcodone-ACET 5/325MG TAB PO PRN (20:51)
[2025-07-05 21:00] VITALS: BP 123/71; PULSE 54; RESP 12; TEMP 97.4; O2SAT 98
[2025-07-05 23:19] VITALS: BP 123/71; PULSE 54; RESP 18; TEMP 97.4; O2SAT 98
[2025-07-05 23:45] VITALS: BP_SYST 111; BP_SYST 114; BP_DIAS 80; PULSE 50; RESP 15; TEMP 98.1; O2SAT 95
[2025-07-06] VITALS (17 sets, daily range): BP systolic 106–136; BP diastolic 58–84; PULSE 47–88; RESP 12–18; TEMP 97.6–98.3; O2SAT 95–99
[2025-07-06 07:06] LABS: Hematocrit 38.3 % (36.0-46.0); Hemoglobin 13.0 g/dL (12.2-16.2); Mean Corpuscular Hemoglobin 29.2 pg (28.0-32.0); Mean Corpuscular Volume 86.2 fL (80.0-100.0); Nucleated Red Blood Cells % 0.1 %
[2025-07-06 07:24] LABS: Alanine Aminotransferase 30 U/L (7-40); Albumin 4.3 g/dL (3.2-4.8); Alkaline Phosphatase 71 U/L (46-116); Anion Gap 9 (5-15); BUN/Creatinine Ratio 13.3 (10.0-20.0); Bilirubin, Total 0.9 mg/dL (0.2-1.0); Blood Urea Nitrogen 12 mg/dL (9-23); Calcium 9.4 mg/dL (8.7-10.4); Carbon Dioxide 27 mmol/L (20-31); Glucose 99 mg/dL (74-106); Potassium 3.7 mmol/L (3.5-5.1); Sodium 143 mmol/L (136-145); Total Protein 7.2 g/dL (5.7-8.2)
[2025-07-06 07:39] LABS: Chloride 107 mmol/L (98-107)
--- NOTE | 2025-07-06 08:16 | DVHPN2 ---
Progress Note - Dictate Date Seen: Jul 06, 2025 Medical Necessity Reason Pt with a Central, PICC or Fol: No Subjective PT WITH RECURRENT CHEST PAIN WOKE PT UP FROM SLEEP TROPONIN NEGATIVE ECG NEGATIVE PMH; GERD SLEEP APNEA vital signs Vital Sign Date Time Temp Pulse Resp B/P (MAP) Pulse Ox O2 Delivery O2 Flow Rate FiO2 07/06/25 05:00 97.6 55 17 106/79 (88) 99 97.6 07/06/25 01:56 Facial BiPAP Mask 30 07/05/25 23:50 0 Total Intake and Output 07/05/25 07/05/25 07/06/25 15:00 23:00 07:00 Intake Total 0 ml Balance 0 ml medications Current Medications Medications Dose Ordered Sig/Niles Route Start Time Stop Time Status Last Admin Dose Admin Acetaminophen/ Hydrocodone Bitart 1 tab Q4HP PRN PO 07/05/25 10:30 07/05/25 20:51 1 TAB Ondansetron HCl 4 mg Q4HP PRN IV 07/05/25 10:30 Docusate Sodium 100 mg BIDPRN PRN PO 07/05/25 10:30 Acetaminophen 650 mg Q6HP PRN PO 07/05/25 10:30 Nitroglycerin 0.4 mg Q5MINP PRN SL 07/05/25 10:30 Morphine Sulfate 2 mg Q30M PRN IV 07/05/25 10:30 Aspirin 81 mg DAILY PO 07/06/25 10:00 Pantoprazole Sodium 40 mg DAILY PO 07/06/25 10:00 laboratory and microbiology Laboratory Tests 07/06/25 06:00 Test 07/06/25 06:00 Range/Units Serum Glucose 99 74-106 mg/dL Problem List RECURRENT CHEST PAIN WOKE PT UP FROM SLEEP TROPONIN NEGATIVE ECG NEGATIVE PMH; GERD SLEEP APNEA Assessment/Plan [facility] THIS AM Plan discussed with: Patient ADAN RIVERA MD Jul 06, 2025 08:16
[2025-07-06 08:18] LABS: Urine Protein, UAD Negative (Negative)
[2025-07-06] MEDS: IOHEXOL 350 MG/ML 100ML IJ ONE (10:22)
[2025-07-06] MEDS: MIDAZOLAM HCL 2MG/2ML 2ml VIAL (1mg/ml) ONE (11:02)
[2025-07-06] MEDS: fentaNYL CITRATE 100 MCG/2 ML VL ONE (11:02)
[2025-07-06] MEDS: LIDOCAINE 2%HCL (LOCAL ANESTH.) INJ 20ML MDV ONE (11:02)
--- NOTE | 2025-07-06 11:22 | DVHOP ---
DATE OF SURGERY: 07/06/2025 INDICATIONS: The patient with abnormal chest pain, pressure-like sensation, wakes her up from sleep. Thus far, all workup has been negative including troponin. The patient is now to undergo left heart catheterization as well as aortogram. We will make further recommendations. In the meantime, conscious sedation was given during the course of the procedure. DESCRIPTION OF PROCEDURE: The patient was prepped and draped under sterile condition. A 1% Xylocaine used to anesthetize the right groin. Using a Cook needle, right femoral artery was engaged in Seldinger technique, a 6-Italian sheath in the right femoral artery. Using 6-Italian JL4 catheter and 6-Italian JR4 catheter, selective left and right coronary angiography was performed. Using a 6-Italian pigtail catheter, ventriculogram was done. Then, the catheter was withdrawn into the ascending aorta and aortogram was performed. There were no complications. Total contrast used was 80 mL of Optiray. RESULTS: * Left main normal. * Left anterior descending artery was normal. * Circumflex was normal. * Right coronary artery was normal. * Left ventricular function showed an ejection fraction of 60% with an LVEDP of 13-17 mmHg with left ventricular systolic pressure of 150 with no gradient across the aortic valve. * Aortogram showed the patient to have no evidence for any kind of aortic aneurysm or dissection. Left and right carotid as well did not show any dissection. Subclavian arteries did not show any dissection or stenosis at this time. CONCLUSION: Thus, the patient with normal coronary anatomy. Normal ascending, transverse and descending aorta. Left ventricular function was normal with an estimated EF of 60%. LVEDP was preserved between 13-17 mmHg. At this time, I believe the only workup left to be done is a VQ scan to rule out PE. If that is negative, the patient may be discharged home. Andrés Gillis MD SA/LENNY TID: [id number] RECEIPT: [id number]
--- NOTE | 2025-07-06 14:27 | DVH ---
CLINICAL INFORMATION: PULMONARY EMBOLISM. Indication for recent chest radiograph was chest pain. TECHNIQUE: 3.7 mCi of Xenon-133 gas was used for the ventilation portion of the exam. Posterior vent ilation imaging was obtained. 4.3 mCi of technetium 99m MAA was used for the perfusion portion of the exam. Imaging was obtained in multiple planes of projection. COMPARISON: XY CHEST XRAY 1 VIEW on DOS: 07/05/25 FINDINGS: Perfusion imaging shows no mismatched segmental or subsegmental segmental defects. Ventilation imaging shows no defects. There is normal washout. IMPRESSION: Normal exam. No evidence of pulmonary embolism.
--- NOTE | 2025-07-06 16:25 | DVHPN2 ---
Assessment/Plan Assessment/Plan progress note 55 yo F with RAMONA, GERD recurrent chest pain. following with dr Bowen outpatient. seen today for [facility] Physical exam aox4 clear breath sounds s1 s2 rrr abdomen soft nontender no epigastric tenderness no LE edema labs ekg imaging reviewed assessment and plan recurrent chest pain possibly angina GERD RAMONA [facility] today asa Lipitor protonix bipap at night diet cardiac dvt ppx lovenox full code Plan discussed with: Patient Date of Service: Jul 06, 2025 Billing Provider: VANIA HILLIARD MD Common Visit Codes: [id number] INP/OBS CARE(HIGH) VANIA HILLIARD MD Jul 06, 2025 16:25
[2025-07-07] VITALS (8 sets, daily range): BP systolic 110–123; BP diastolic 73–78; PULSE 48–52; RESP 16–17; TEMP 36.7; O2SAT 98–99
[2025-07-07 06:48] LABS: Hematocrit 37.1 % (36.0-46.0); Hemoglobin 12.9 g/dL (12.2-16.2); Mean Corpuscular Hemoglobin 30.0 pg (28.0-32.0); Mean Corpuscular Volume 86.4 fL (80.0-100.0); Nucleated Red Blood Cells % 0.2 %
[2025-07-07 06:58] LABS: Calcium 9.4 mg/dL (8.7-10.4); Chloride 106 mmol/L (98-107); Potassium 3.7 mmol/L (3.5-5.1); Sodium 143 mmol/L (136-145)
[2025-07-07 06:59] LABS: Anion Gap 11 (5-15); Carbon Dioxide 26 mmol/L (20-31)
[2025-07-07 07:04] LABS: BUN/Creatinine Ratio 12.9 (10.0-20.0); Blood Urea Nitrogen 11 mg/dL (9-23); Glucose 98 mg/dL (74-106)
[2025-07-07] MEDS: MAALOX PLUS or MAALOX 30 ML PO SCH (12:22)
--- NOTE | 2025-07-07 14:27 | DVHPN2 ---
Progress Note - Dictate Date Seen: Jul 07, 2025 Medical Necessity Reason Pt with a Central, PICC or Fol: No Subjective PT WITH RECURRENT CHEST PAIN WOKE PT UP FROM SLEEP TROPONIN NEGATIVE ECG NEGATIVE PMH; GERD SLEEP APNEA vital signs Vital Sign Date Time Temp Pulse Resp B/P (MAP) Pulse Ox O2 Delivery O2 Flow Rate FiO2 07/07/25 13:00 98.0 48 17 123/75 (91) 98 98.0 07/07/25 10:00 Room Air 0.0 07/07/25 10:00 21 Total Intake and Output 07/06/25 07/06/25 07/07/25 15:00 23:00 07:00 Intake Total 400 ml 600 ml Balance 400 ml 600 ml medications Current Medications Medications Dose Ordered Sig/Niles Route Start Time Stop Time Status Last Admin Dose Admin Acetaminophen/ Hydrocodone Bitart 1 tab Q4HP PRN PO 07/05/25 10:30 07/07/25 06:09 1 TAB Ondansetron HCl 4 mg Q4HP PRN IV 07/05/25 10:30 Docusate Sodium 100 mg BIDPRN PRN PO 07/05/25 10:30 Acetaminophen 650 mg Q6HP PRN PO 07/05/25 10:30 Nitroglycerin 0.4 mg Q5MINP PRN SL 07/05/25 10:30 Morphine Sulfate 2 mg Q30M PRN IV 07/05/25 10:30 Aspirin 81 mg DAILY PO 07/06/25 10:00 07/07/25 09:43 81 MG Pantoprazole Sodium 40 mg DAILY PO 07/06/25 10:00 07/07/25 09:43 40 MG Al Hydrox/Mg Hydrox/Simethicone 30 ml Q6HR PO 07/07/25 12:00 07/07/25 12:22 30 ML laboratory and microbiology Laboratory Tests 07/07/25 05:54 Test 07/07/25 05:54 Range/Units Serum Glucose 98 74-106 mg/dL Problem List RECURRENT CHEST PAIN WOKE PT UP FROM SLEEP TROPONIN NEGATIVE ECG NEGATIVE PMH; GERD SLEEP APNEA Assessment/Plan [facility] THIS AM normal cad v/q scan negative DC HOME Plan discussed with: Patient ADAN RIVERA MD Jul 07, 2025 14:27
[2025-07-07] MEDS ORDERED: MAA30LQ PO (20:16)
--- NOTE | 2025-07-07 20:18 | DVHDS2 ---
Discharge Summary Date of Admission Jul 05, 2025 at 10:28 Date of Discharge: Jul 07, 2025 Labs/Diagnostic Data: Laboratory Results Test 07/07/25 05:54 07/06/25 06:40 07/06/25 06:00 07/05/25 18:55 White Blood Count 5.5 10^3/uL (4.4-10.8) Red Blood Count 4.29 10^6/uL (4.0-5.20) Hemoglobin 12.9 g/dL (12.2-16.2) Hematocrit 37.1 % (36.0-46.0) Mean Corpuscular Volume 86.4 fL (80.0-100.0) Mean Corpuscular Hemoglobin 30.0 pg (28.0-32.0) Mean Corpuscular Hemoglobin Concent 34.7 g/dL (32.0-36.0) Red Cell Distribution Width 12.8 % (11.8-14.3) Platelet Count 263 10^3/uL (140-450) Mean Platelet Volume 9.3 fL (6.9-10.8) Neutrophils (%) (Auto) 54.3 % (37.0-80.0) Lymphocytes (%) (Auto) 35.5 % (10.0-50.0) Monocytes (%) (Auto) 7.8 % (0.0-12.0) Eosinophils (%) (Auto) 1.8 % (0.0-7.0) Basophils (%) (Auto) 0.6 % (0.0-2.0) Neutrophils # (Auto) 3.0 10 ^3/uL (1.6-8.6) Lymphocytes # (Auto) 2.0 10 ^3/uL (0.4-5.4) Monocytes # (Auto) 0.4 10 ^3/uL (0-1.3) Eosinophils # (Auto) 0.1 10 ^3/uL (0-0.8) Basophils # (Auto) 0 10 ^3/uL (0-0.2) Nucleated Red Blood Cells 0.2 % Sodium Level 143 mmol/L (136-145) Potassium Level 3.7 mmol/L (3.5-5.1) Chloride Level 106 mmol/L (98-107) Carbon Dioxide Level 26 mmol/L (20-31) Anion Gap 11 (5-15) Blood Urea Nitrogen 11 mg/dL (9-23) Creatinine 0.85 mg/dL (0.550-1.02) Glomerular Filtration Rate Calc 82 mL/min (>90) BUN/Creatinine Ratio 12.9 (10.0-20.0) Serum Glucose 98 mg/dL (74-106) Calcium Level 9.4 mg/dL (8.7-10.4) Urine Color Light-yellow (Yellow) Urine Clarity Clear (Clear) Urine pH 6.5 (5.0-9.0) Urine Specific [place] 1.020 (1.001-1.035) Urine Protein Negative (Negative) Urine Ketones Negative (Negative) Urine Blood Negative /uL (Negative) Urine Nitrite Negative (Negative) Urine Bilirubin Negative (Negative) Urine Urobilinogen Normal mg/dL (Negative) Urine Leukocyte Esterase 2+ /uL (Negative) Urine RBC 2 /hpf (0 - 4) Urine Microscopic WBC 13 /HPF (0-5) Urine Squamous Epithelial Cells Few /hpf (<5) Urine Bacteria Few /hpf (None Seen) Urine Glucose Normal mg/dL (Normal) Total Bilirubin 0.9 mg/dL (0.2-1.0) Aspartate Amino Transferase (AST) 21 U/L (13-40) Alanine Aminotransferase (ALT) 30 U/L (7-40) Alkaline Phosphatase 71 U/L (46-116) Total Protein 7.2 g/dL (5.7-8.2) Albumin 4.3 g/dL (3.2-4.8) Prothrombin Time 10.8 sec (9.3-11.8) Prothrombin Time INR 1.02 (0.9-1.15) Activated Partial Thromboplast Time 25.4 SEC (24.5-34.5) Test 07/05/25 06:51 07/05/25 03:56 Troponin I High Sensitivity 24 ng/L (</=34) Hemoglobin A1c 5.4 % A1C (<5.7) B-Type Natriuretic Peptide 7.47 pg/mL (0-100) Triglycerides Level 93 mg/dL (< 150) Cholesterol Level 240 mg/dL (< 200) LDL Cholesterol 165 mg/dL (< 100) HDL Cholesterol 66 mg/dL (40-59) Thyroid Stimulating Hormone (TSH) 4.51 uIU/mL (0.55-4.78) Other Laboratory Tests 07/07/25 05:54 Brief Hx & Hospital Course: 55 yo F with RAMONA, GERD recurrent chest pain. following with dr Bowen outpatient. seen today for LHC, clean coronaries. vq scan negative. chest pain likely functinal dyspepsia vs esophageal spasm. [facility]. Condition at Discharge: Good Final Diagnosis/Problems List recurrent chest, acs ruled out, possible functional dyspepsia vs esophageal spasm GERD RAMONA Discharge Disposition: Home Discharge Instruct/Medications Diet: Cardiac 2g Na,low cholest Activity: No Restrictions, As Tolerated Follow Up/Referral: follow up wi dr bowen in one week Medications: resume home medication Scheduled Pantoprazole Sodium Sesquihydr (Protonix), 40 MG PO DAILY, (Reported) Scheduled PRN Alum & Mag Hydrox-Simethicone (Maalox Plus), 30 ML PO Q6HP PRN Miscellaneous Medications Allium Sativan Extract (Garlic), Unknown Dose PO, (Reported) Discharge Statement: "Patient was advised to return to the ER or call 911 if any headaches, dizziness, shortness of breath, chest pain, abdominal pain, bleeding, fevers, or worsening of medical condition. Patient was counseled about treatment plan, medications, possible side effects, patientverbalized understanding. All questions were answered to the best of my ability. This discharge took greater then 30 minutes in planning, reviewing documentation, counseling the patient, and discussing with other team members." ASSESSMENT ASSESSMENT Assessment atypical chest pain costochondritis Date of Service: Jul 07, 2025 Billing Provider: VANIA HILLIARD MD Common Visit Codes: [id number] DISCH DAY >30min VANIA HILLIARD MD Jul 07, 2025 20:18
--- NOTE | 2025-07-11 10:23 | DVHSR ---
APPROVED REPORT EXAM: Two-dimensional and M-mode echocardiogram with Doppler and color Doppler. Blood Pressure: 106/79 mmHg INDICATION SYMTOMATIC SINUS BRADYCARDIA RISK FACTORS Height: 5'3, Weight: 150 DIMENSIONS LVDd4.4 (3.8-5.7cm)LA (2D)3.5 (1.9-4.0cm)Aortic Root3.0 (2.0-3.7cm) LVDs2.7 (2.5-4.0cm)LA (MM) (1.9-4.0cm)Aortic Cusp Exc1.6 (1.5-2.0cm) EF (%) 60.0 (55-70%)Rt. Atrium3.4 (1.9-4.0cm)Asc. Aorta3.1 cm IVSd0.8 (0.7-1.1cm)RV (D)3.6 (1.8-2.4cm) PWd0.5 (0.7-1.1cm) Mitral Valve MitralMitral Stenosis E wave0.83m/sMV Mean GR.mmHg A wave0.73m/sMV Peak GR.65mmHg E/A ratio1.12D MVAcm2 DECEL [id number] 1/2 Timems Aortic Valve Aortic ValveAortic Stenosis V11.05m/Jeovany Mean GR.4mmHg V21.48m/Jeovany Peak GR.9mmHg LVOT Diameter1.8 (1.8-2.4cm)Doppler AVA1.80cm2 Pulmonic Valve V21.02m/s Tricuspid Valve TR Velocity2.20m/s [id number] Conclusion TRACE TR EF >55%
== END 2025-07-07 16:10 | disposition home or self-care (01) | DRG 206 ==
LOC: ER 03:48 → OVERFLOW 10:28 → TELE-WESTW 23:30
PROVIDERS: ADMIT Student in an Organized Health Care Education/Training Program; ATTEND Student in an Organized Health Care Education/Training Program
PROC: 4A023N7 Measurement of Cardiac Sampling and Pressure, Left Heart, Percutaneous Approach (ICD-10-PCS; principal; 2025-07-06)
PROC: B2111ZZ Fluoroscopy of Multiple Coronary Arteries using Low Osmolar Contrast (ICD-10-PCS; 2025-07-06)
PROC: B2151ZZ Fluoroscopy of Left Heart using Low Osmolar Contrast (ICD-10-PCS; 2025-07-06)
PROC: 5A09357 Assistance with Respiratory Ventilation, Less than 24 Consecutive Hours, Continuous Positive Airway Pressure (ICD-10-PCS; 2025-07-06)
PROC: 5A09357 Assistance with Respiratory Ventilation, Less than 24 Consecutive Hours, Continuous Positive Airway Pressure (ICD-10-PCS; 2025-07-07)
DX: M94.0 Chondrocostal junction syndrome [Tietze] (principal); K22.4 Dyskinesia of esophagus; K30 Functional dyspepsia; K21.9 Gastro-esophageal reflux disease without esophagitis; G47.33 Obstructive sleep apnea (adult) (pediatric); I25.10 Atherosclerotic heart disease of native coronary artery without angina pectoris
CPT/HCPCS: 36415; 71045; 78582; 80048; 80053; 80061; 81001; 83036; 83880; 84443; 84484; 85025; 85610; 85730; 86850; 86900; 86901; 93005; 93306; 93458; 94660; 96374; 96375; 99152; G0378; J2250; J2405; Q0162

== ENCOUNTER 2025-07-13 12:27 | Outpatient (CLI) | payer OTHER ==
[~2025-07-13 12:27] MED LIST changes: +MAA30LQ PO; +PANT40TA2 PO
[2025-07-14 10:07] LABS: Anti-Nuclear Antibody Direct Positive (Negative); Anti-dsDNA Antibody 1 IU/mL (0-9); Antiscleroderma-70 Antibody <0.2 AI (0.0-0.9); Sjogren's Anti-SS-A Antibody >8.0 AI (0.0-0.9); Sjogren's Anti-SS-B Antibody 0.5 AI (0.0-0.9)
== END 2025-07-13 17:00 | disposition home or self-care (01) ==
LOC: LAB 12:27
PROVIDERS: ATTEND Internal Medicine Cardiovascular Disease
DX: I10 Essential (primary) hypertension (principal); E11.9 Type 2 diabetes mellitus without complications; E55.9 Vitamin D deficiency, unspecified; D64.9 Anemia, unspecified; R00.2 Palpitations; M32.10 Systemic lupus erythematosus, organ or system involvement unspecified
CPT/HCPCS: 36415; 85652; 86141; 86160; 86225; 86235; 86376; 86431

== ENCOUNTER 2025-08-23 09:49 | Outpatient (CLI) | payer OTHER ==
[2025-08-23 10:21] LABS: Hematocrit 39.3 % (36.0-46.0); Hemoglobin 13.4 g/dL (12.2-16.2); Mean Corpuscular Hemoglobin 29.5 pg (28.0-32.0); Mean Corpuscular Volume 86.5 fL (80.0-100.0); Nucleated Red Blood Cells % 0.1 %
[2025-08-23 10:35] LABS: Urine Protein, UAD Negative (Negative)
[2025-08-23 11:07] LABS: Follicle Stimulating Hormone 37.98 IU/L (SEE BELOW); Free T4 (Free Thyroxine) 1.1 ng/dL (0.89-1.76)
== END 2025-08-23 17:00 | disposition home or self-care (01) ==
LOC: LAB 09:49
PROVIDERS: ATTEND Obstetrics & Gynecology
DX: N95.1 Menopausal and female climacteric states (principal); E28.2 Polycystic ovarian syndrome
CPT/HCPCS: 36415; 81001; 82626; 82670; 83001; 83002; 83036; 84146; 84402; 84403; 84439; 84443; 85025